=== PATIENT | female | born 1955 | race Asian ===

== ENCOUNTER 2017-03-13 09:18 | Outpatient (CLI) | payer OTHER | END 2017-03-13 18:55 | disposition home or self-care (01) | LOC: MAMMO 09:18 | DX: Z12.31 Encounter for screening mammogram for malignant neoplasm of breast (principal) ==

== ENCOUNTER 2018-03-16 08:25 | Outpatient (CLI) | payer OTHER | END 2018-03-16 20:30 | disposition home or self-care (01) | LOC: MAMMO 08:25 | DX: Z12.31 Encounter for screening mammogram for malignant neoplasm of breast (principal) ==

== ENCOUNTER 2019-03-20 10:17 | Outpatient (CLI) | payer OTHER | END 2019-03-20 20:04 | disposition home or self-care (01) | LOC: MAMMO 10:17 | DX: Z12.31 Encounter for screening mammogram for malignant neoplasm of breast (principal) ==

== ENCOUNTER 2020-03-23 10:35 | Outpatient (CLI) | payer OTHER | END 2020-03-23 19:41 | disposition home or self-care (01) | LOC: MAMMO 10:35 | PROVIDERS: ATTEND Internal Medicine | DX: Z12.31 Encounter for screening mammogram for malignant neoplasm of breast (principal) ==

== ENCOUNTER 2021-02-01 09:11 | Outpatient (CLI) | payer OTHER | END 2021-02-01 20:04 | disposition home or self-care (01) | LOC: CT 09:11 | PROVIDERS: ATTEND Neurological Surgery | DX: M54.16 Radiculopathy, lumbar region (principal) ==

== ENCOUNTER 2021-03-26 12:53 | Outpatient (CLI) | payer OTHER | END 2021-03-26 19:02 | disposition home or self-care (01) | LOC: MAMMO 12:53 | PROVIDERS: ATTEND Internal Medicine | DX: Z12.31 Encounter for screening mammogram for malignant neoplasm of breast (principal) ==

== ENCOUNTER 2021-12-01 07:56 | Outpatient (CLI) | payer OTHER | END 2021-12-01 19:57 | disposition home or self-care (01) | LOC: RAD 07:56 | PROVIDERS: ATTEND Internal Medicine | DX: Z13.820 Encounter for screening for osteoporosis (principal); N95.8 Other specified menopausal and perimenopausal disorders ==

== ENCOUNTER 2022-02-04 11:35 | Outpatient (CLI) | payer OTHER | END 2022-02-04 18:53 | disposition home or self-care (01) | LOC: RAD 11:35 | PROVIDERS: ATTEND Internal Medicine | DX: R05.9 Cough, unspecified (principal) ==

== ENCOUNTER 2022-03-31 11:07 | Outpatient (CLI) | payer OTHER | END 2022-03-31 18:58 | disposition home or self-care (01) | LOC: MAMMO 11:07 | PROVIDERS: ATTEND Internal Medicine | DX: Z12.31 Encounter for screening mammogram for malignant neoplasm of breast (principal) ==

== ENCOUNTER 2022-06-29 11:18 | Outpatient (CLI) | payer OTHER | END 2022-06-29 19:41 | disposition home or self-care (01) | LOC: US 11:18 | PROVIDERS: ATTEND Internal Medicine | DX: M79.604 Pain in right leg (principal); R22.41 Localized swelling, mass and lump, right lower limb; E03.8 Other specified hypothyroidism ==